=== PATIENT | male | born 1980 ===

== ENCOUNTER 2021-11-02 19:13 | Emergency (ER) | payer BC ==
--- OUTSIDE RECORDS SUMMARY | 2021-11-02 19:16 | XMS REPORT | Continuity of Care Document ---
:1980 Author Organization [facility] t Address [address] [place] [address] Care Team Providers Name Role Phone KALANI Primary Care Physician Unavailable Addie TO, T Attending Clinician Unavailable GREEN Attending Clinician Unavailable Jared PIANO PROFESSOR Attending Clinician Doctor Unassigned, Name Attending Clinician Unavailable Lab, Fam Pob I Attending Clinician Unavailable Payers Payer Name Policy Type Policy Number Effective Date Expiration Date S ource Problems Condition Condition Condition Status Onset Resolution Last Treating Co mments Source Name Details Category Date Date Treatment Clinician Date No known No known Disease Unive rs active active ity of problems problems [facility] Allergies, Adverse Reactions, Alerts Allergy Allergy Status Severity Reaction(s) Onset Inactive Treating Comm ents Source Name Type Date Date Clinician NO KNOWN Drug Active Univers ALLERGIE Class ity of S [facility] Social History Social Habit Start Date Stop Date Quantity Comments Source Exposure to Not sure [facility] SARS-CoV-2 (event) Medica l Branch Tobacco use and 2017-08-18 2017-08-18 Never used [facility] exposure 00:00:00 00:00:00 [facility] Sex Assigned At [birth year] [facility] 00:00:00 00:00:00 [facility] Smoking Status Start Date Stop Date Source Never smoker [facility] Medications Ordered Filled Start Stop Current Ordering Indication Dosage Frequency Signature Comments Components Source Medication Medication Date Date Medication? Clinician (SIG) Name Name methylPREDN 2018- Yes 84mg Take 21 Uni vers ISolone 5-23 tablets by ity of (MEDROL, 00:00: mouth [place] JUAQUIN,) 4 mg 00 SEE-INSTRU Med ical tablets CTIONS. Branch follow package directions methylPREDN 2018-0 Yes 84mg Take 21 Uni vers ISolone 5-23 tablets by ity of (MEDROL, 00:00: mouth [place] JUAQUIN,) 4 mg 00 SEE-INSTRU Med ical tablets CTIONS. Branch follow package directions methylPREDN 2018-0 Yes 84mg Take 21 Uni vers ISolone 5-23 tablets by ity of (MEDROL, 00:00: mouth [place] JUAQUIN,) 4 mg 00 SEE-INSTRU Med ical tablets CTIONS. Branch follow package directions methylPREDN 2018-0 Yes 84mg Take 21 Uni vers ISolone 5-23 tablets by ity of (MEDROL, 00:00: mouth [place] JUAQUIN,) 4 mg 00 SEE-INSTRU Med ical tablets CTIONS. Branch follow package directions methylPREDN 2018-0 Yes 84mg Take 21 Uni vers ISolone 2-16 tablets by ity of (MEDROL, 00:00: mouth [place] JUAQUIN,) 4 mg 00 SEE-INSTRU Med ical tablets CTIONS. Branch follow package directions methylPREDN 2018-0 Yes 84mg Take 21 Uni vers ISolone 2-16 tablets by ity of (MEDROL, 00:00: mouth [place] JUAQUIN,) 4 mg 00 SEE-INSTRU Med ical tablets CTIONS. Branch follow package directions methylPREDN 2018-0 Yes 84mg Take 21 Uni vers ISolone 2-16 tablets by ity of (MEDROL, 00:00: mouth [place] JUAQUIN,) 4 mg 00 SEE-INSTRU Med ical tablets CTIONS. Branch follow package directions methylPREDN 2018-0 Yes 84mg Take 21 Uni vers ISolone 2-16 tablets by ity of (MEDROL, 00:00: mouth [place] JUAQUIN,) 4 mg 00 SEE-INSTRU Med ical tablets CTIONS. Branch follow package directions Vital Signs Vital Name Observation Time Observation Value Comments Source Systolic blood 2021-07-06 15:15:00 125 mm[Hg] [facility] [place] [facility] Diastolic blood 2021-07-06 15:15:00 93 mm[Hg] [facility] Heart rate 2021-07-06 15:15:00 69 /min [facility] Body temperature 2021-07-06 15:15:00 36.5 Mira [facility] Respiratory rate 2021-07-06 15:15:00 16 /min [facility] Body height 2021-07-06 15:15:00 180.3 cm [facility] Body weight 2021-07-06 15:15:00 113.399 kg [facility] BMI 2021-07-06 15:15:00 34.87 kg/m2 [facility] Oxygen saturation in 2021-07-06 15:15:00 99 /min [facility] Arterial blood by [facility] Pulse oximetry [place] Procedures Procedure Date / Time Performed Performing Clinician Sour e ASSIGNMENT OF BENEFITS 2021-07-06 15:12:09 Doctor Unassigned, No [facility] Encounters Start End Encounter Admission Attending Care Care Encounter Source Date/Time Date/Time Type Type Clinicians Facility Department ID 2021-07-07 2021-07-07 Letter MIKE Real [id number] Univers 00:00:00 00:00:00 (Out) Fadia RIOS [id number] it y of [facility] [id number] Marcin as [id number] [address] 2021-07-06 2021-07-06 [facility] [id number] Univers 09:20:00 09:48:52 DEE ity [facility] 2021-07-06 2021-07-06 [facility] [id number] Univers 09:20:00 09:40:00 Care [facility] [id number] it y of [place] [id number] Marcin as SIGRID?BLEA [id number] [address] MEDICAL OFFICE BUILDING 2021-07-06 2021-07-06 Outpatient R [facility] [id number] Univers 09:20:00 09:20:00 [id number] ity [facility] 2021-07-06 2021-07-06 Orders Doctor MCKEON [id number] Univers 00:00:00 00:00:00 Only UnassignedGABRIEL [id number] ity of [facility] [id number] Marcin as [phone] [place] [address] Branch 2020-03-30 2020-03-30 Laboratory Lab, Adc Fam Pob I [facility] [id number] Univers 18:21:57 18:41:57 Only Jared [facility] [id number] ity of [place] [id number] Marcin as Professio [phone] [facility] [address] 2020-03-30 2020-03-30 Outpatient R JARED [facility] [id number] Univers 18:20:00 18:20:00 DEE [facility] Results This patient has no known results.
--- NOTE | 2021-11-02 20:11 | RAD REPORT ---
EXAM DESCRIPTION: CT - Facial Bones W/ Mpr - 11/02/2021 7:40 pm CLINICAL HISTORY: Baseball injury, blunt force trauma to the right cheek periorbital region COMPARISON: None. TECHNIQUE: Axial 2 millimeter thick images of the facial bones were obtained with sagittal and coron al reconstruction imaging. All CT scans are performed using dose optimization technique as appropriate and may include automated exposure control or mA/KV adjustment according to patient size. FINDINGS: Multiple fractures of the right maxillary sinus dickerson are present. Anterior wall fracture is present extends superiorly to the inferior orbital rim and continues posteriorly along the right o rbital floor. There is minimal depression of the orbital floor fracture. Fat extends through the frac ture defect. No extra ocular muscle entrapment. The globe, extraocular muscles optic nerve and orbita l fat show no acute finding. Air-fluid level present in the right maxillary sinus. Fractures are pres ent along the lateral sinus wall as well. Anterior wall fracture of the sinus continues to the maxill a zygomatic arch junction. No fracture of the medial orbital wall. No nasal bone fracture present. Minimal deviation of the nasa l septum to the right without fracture identifiable. Right-side medial and lateral pterygoids are intact. No mandible fractures seen. Condyles are normall y positioned. No skullbase fracture. Mastoid air cells are clear. Contusion and edema changes are present in the soft tissues overlying the maxilla. IMPRESSION: Comminuted fractures of the right maxillary sinus dickerson including right orbital floor fr acture. No significant displacement of the fracture fragments. There is minimal depression of the orbital floor fracture with a small amount of fat extending throug h the defect. No extraocular muscle entrapment. Contusion and edema change of the soft tissues overlying the right maxilla and right orbit. No orbita l content injury.
--- NOTE | 2021-11-02 20:13 | RAD REPORT ---
EXAM DESCRIPTION: CT - Head Brain Wo Cont - 11/02/2021 8:05 pm CLINICAL HISTORY: Head trauma, moderate-severe COMPARISON: Facial Bones W/ Mpr dated 11/02/2021 TECHNIQUE: Axial 5 mm thick images of the head were obtained without IV contrast. All CT scans are performed using dose optimization technique as appropriate and may include automated exposure control or mA/KV adjustment according to patient size. FINDINGS: No intracranial hemorrhage, mass, edema or shift of mid-line structures. No abnormal extra -axial fluid collections. Ventricles are normal. Mastoid air cells and middle ears are clear. No skullbase fracture. Orbits, facial bones and sinuses are separately reported. IMPRESSION: No hemorrhage, edema or acute intracranial finding. Facial bones, orbits and sinuses are separately reported.
[2021-11-02] MEDS ORDERED: HYDROCODONE/APAP 10/325 TAB ONE (21:59)
[2021-11-02] MEDS ORDERED: AMOXICILLIN TRIHYDR 250 MG CAP ONE (21:59)
--- NOTE | 2021-11-02 22:40 | ER ---
Nurse's Notes [facility] Name: Edmundo Bray II Age: 41 yrs Sex: Male : 1980 Arrival Date: 11/02/2021 Time: 19:15 Bed 29 Private MD: Diagnosis: Maxillary fracture, unspecified-comminutrd, right orbital floor, no muscle entrapment Presentation: 11/02 19:27 Chief complaint: Patient states: I was hit in the face with a softball today at [place] [address] practice - 1730. Pt denies LOC. Minimal pain at this time. Care prior to arrival: None. Mechanism of Injury:. Trauma event details: Injury occurred in the [facility]. 19:27 Acuity: NATALYA 4 ld1 19:27 Method Of Arrival: Ambulatory ld1 19:28 Coronavirus screen: At this time, the client does not indicate any symptoms associated ld1 with coronavirus-19. Ebola Screen: No symptoms or risks identified at this time. Initial Sepsis Screen: Does the patient meet any 2 criteria? No. Patient's initial sepsis screen is negative. Does the patient have a suspected source of infection? No. Patient's initial sepsis screen is negative. Risk Assessment: Do you want to hurt yourself or someone else? Patient reports no desire to harm self or others. Onset of symptoms was November 02, 2021. Triage Assessment: 19:28 General: Appears in no apparent distress. comfortable, Behavior is calm, cooperative, ld1 appropriate for age. Pain: Complains of pain in face Pain does not radiate. Pain currently is 3 out of 10 on a pain scale. Quality of pain is described as throbbing. EENT: No signs and/or symptoms were reported regarding the EENT system. Neuro: [place] Agitation-Sedation Scale (RASS): 0 - Alert and Calm Level of Consciousness is awake, alert, obeys commands, Oriented to person, place, time, situation. Cardiovascular: Capillary refill < 3 seconds Patient's skin is warm and dry. Respiratory: Airway is patent Respiratory effort is even, unlabored. Historical: - Allergies: 19:28 No Known Allergies; ld1 - Home Meds: 19:28 None [Active]; ld1 - PMHx: 19:28 None; ld1 - PSHx: 19:28 None; ld1 - Immunization history:: Adult Immunizations up to date, Client reports having NOT received the Covid vaccine. - Social history:: Smoking status: Patient denies any tobacco usage or history of. Patient uses alcohol. - Family history:: not pertinent. Screenin:00 Abuse screen: Denies threats or abuse. Nutritional screening: No deficits noted. vc1 Tuberculosis screening: No symptoms or risk factors identified. Fall Risk None identified. Assessment: 22:00 Reassessment: Patient and/or family updated on plan of care and expected duration. Pain vc1 level reassessed. Patient is alert, oriented x 3, equal unlabored respirations, skin warm/dry/pink. See triage assessment. Vital Signs: 19:28 BP 126 / 84; Pulse 69; Resp 18; Temp 98.6(TE); Pulse Ox 98% ; Weight 113.4 kg; Height 5 ld1 ft. 11 in. (180.34 cm); Pain 3/10; 22:00 BP 124 / 80; Pulse 66; Resp 18; Pulse Ox 98% on R/A; vc1 19:28 Body Mass Index 34.87 (113.40 kg, 180.34 cm) ld1 [place] Coma Score: 22:34 Eye Response: spontaneous(4). Verbal Response: oriented(5). Motor Response: obeys agustín commands(6). Total: 15. 22:37 Eye Response: spontaneous(4). Verbal Response: oriented(5). Motor Response: obeys agustín commands(6). Total: 15. ED Course: 19:15 Patient arrived in ED. kz 19:19 [facility] jm 19:19 Jorge Diana MD is Attending Physician. [facility] 19:28 Triage completed. ld1 19:28 Arm band placed on right wrist. ld1 19:41 CT Facial Bones W/O Con In Process Unspecified. EDMS 20:06 CT Head Brain wo Cont In Process Unspecified. EDMS 21:48 Jorge Diana MD is Attending Physician. agustín 22:11 Sapna Brooke, ZULEIKA is Primary Nurse. ld1 22:39 Anna Monroy MD is Referral Physician. agustín 22:50 No provider procedures requiring assistance completed. Patient did not have IV access vc1 during this emergency room visit. Administered Medications: 22:11 Drug: Augmentin (Amoxicillin-Clavulanate) 875 mg Route: PO; ld1 22:11 Drug: [place] (HYDROcodone-acetaminophen) 10 mg-325 mg 1 tabs Route: PO; ld1 Outcome: 22:40 Discharge ordered by . agustín 22:57 Patient left the ED. mw2 11/03 04:33 Discharged to home ambulatory. vc1 Condition: stable Discharge instructions given to patient, Instructed on discharge instructions, follow up and referral plans. Demonstrated understanding of instructions, follow-up care. Signatures: Dispatcher [employer] EDJorge Fisher MD MD cha Mickail, Joel, PA PA jmm [place], MyKena mw2 Sapna Brooke RN RN ld1 Janessa Conklin RN RN vc1 Ana Morin
--- NOTE | 2021-11-02 22:40 | EDPHYS ---
Physician Documentation [facility] Name: Edmundo Bray II Age: 41 yrs Sex: Male : 1980 Arrival Date: 11/02/2021 Time: 19:15 Bed 29 Private MD: ED Physician Jorge Diana HPI: 11/02 22:34 This 41 yrs old Male presents to ER via Ambulatory with complaints of Facial agustín Injury - Hit with baseball. 22:34 The patient or guardian reports deformity, pain, swelling, tenderness. The complaints agustín affect the right eye and right cheek. Context of injury: The problem was sustained at a neighbor's home. Onset: The symptoms/episode began/occurred just prior to arrival. Associated signs and symptoms: Loss of consciousness: This patient did not experience any loss of consciousness. Severity of symptoms: At their worst the symptoms were mild, in the emergency department the symptoms are unchanged. The patient has not experienced similar symptoms in the past. Historical: - Allergies: 19:28 No Known Allergies; ld1 - Home Meds: 19:28 None [Active]; ld1 - PMHx: 19:28 None; ld1 - PSHx: 19:28 None; ld1 - Immunization history:: Adult Immunizations up to date, Client reports having NOT received the Covid vaccine. - Social history:: Smoking status: Patient denies any tobacco usage or history of. Patient uses alcohol. - Family history:: not pertinent. ROS: 22:34 Constitutional: Negative for fever, chills, and weight loss, Neck: Negative for injury, agustín pain, and swelling, Cardiovascular: Negative for chest pain, palpitations, and edema, Respiratory: Negative for shortness of breath, cough, wheezing, and pleuritic chest pain, Abdomen/GI: Negative for abdominal pain, nausea, vomiting, diarrhea, and constipation, Back: Negative for injury and pain, : Negative for injury, bleeding, discharge, and swelling, MS/Extremity: Negative for injury and deformity, Skin: Negative for injury, rash, and discoloration, Neuro: Negative for headache, weakness, numbness, tingling, and seizure. 22:34 Eyes: Positive for pain, swelling. 22:34 ENT: Positive for injury or acute deformity, of the right eye and right cheek. Exam: 22:34 Constitutional: This is a well developed, well nourished patient who is awake, alert, agustín and in no acute distress. Eyes: Pupils equal round and reactive to light, extra-ocular motions intact. Lids and lashes normal. Conjunctiva and sclera are non-icteric and not injected. Cornea within normal limits. Periorbital areas with no swelling, redness, or edema. ENT: Nares patent. No nasal discharge, no septal abnormalities noted. Tympanic membranes are normal and external auditory canals are clear. Oropharynx with no redness, swelling, or masses, exudates, or evidence of obstruction, uvula midline. Mucous membranes moist. Neck: Trachea midline, no thyromegaly or masses palpated, and no cervical lymphadenopathy. Supple, full range of motion without nuchal rigidity, or vertebral point tenderness. No Meningismus. Chest/axilla: Normal chest wall appearance and motion. Nontender with no deformity. No lesions are appreciated. Cardiovascular: Regular rate and rhythm with a normal S1 and S2. No gallops, murmurs, or rubs. Normal PMI, no JVD. No pulse deficits. Respiratory: Lungs have equal breath sounds bilaterally, clear to auscultation and percussion. No rales, rhonchi or wheezes noted. No increased work of breathing, no retractions or nasal flaring. Abdomen/GI: Soft, non-tender, with normal bowel sounds. No distension or tympany. No guarding or rebound. No evidence of tenderness throughout. Back: No spinal tenderness. No costovertebral tenderness. Full range of motion. Skin: Warm, dry with normal turgor. Normal color with no rashes, no lesions, and no evidence of cellulitis. MS/ Extremity: Pulses equal, no cyanosis. Neurovascular intact. Full, normal range of motion. Neuro: Awake and alert, GCS 15, oriented to person, place, time, and situation. Cranial nerves II-XII grossly intact. Motor strength 5/5 in all extremities. Sensory grossly intact. Cerebellar exam normal. Normal gait. Psych: Awake, alert, with orientation to person, place and time. Behavior, mood, and affect are within normal limits. 22:34 Head/face: Noted is deformity, hematoma, swelling, that is moderate, of the right eye and right cheek, tenderness. Vital Signs: 19:28 BP 126 / 84; Pulse 69; Resp 18; Temp 98.6(TE); Pulse Ox 98% ; Weight 113.4 kg; Height 5 ld1 ft. 11 in. (180.34 cm); Pain 3/10; 22:00 BP 124 / 80; Pulse 66; Resp 18; Pulse Ox 98% on R/A; vc1 19:28 Body Mass Index 34.87 (113.40 kg, 180.34 cm) ld1 [place] Coma Score: 22:34 Eye Response: spontaneous(4). Verbal Response: oriented(5). Motor Response: obeys agustín commands(6). Total: 15. 22:37 Eye Response: spontaneous(4). Verbal Response: oriented(5). Motor Response: obeys agustín commands(6). Total: 15. MDM: 21:50 Patient medically screened. agustín 22:37 Differential diagnosis: Contusion of Hematoma on Intracranial bleed- Concussion without agustín LOC. Data reviewed: vital signs, nurses notes, radiologic studies, CT scan. Data interpreted: telemetry monitor: not applicable for this patient encounter. rate is 69 beats/min, rhythm is regular, Pulse oximetry: on room air is 98 %. 11/02 19:32 Order name: CT Facial Bones W/O Con; Complete Time: 20:14 agustín 11/02 19:53 Order name: CT Head Brain wo Cont; Complete Time: 20:14 [facility] 11/02 19:32 Order name: Ice pack; Complete Time: 21:47 agustín Administered Medications: 22:11 Drug: Augmentin (Amoxicillin-Clavulanate) 875 mg Route: PO; ld1 22:11 Drug: [place] (HYDROcodone-acetaminophen) 10 mg-325 mg 1 tabs Route: PO; ld1 Disposition Summary: 11/02/21 22:40 Discharge Ordered Location: Home agustín Problem: new agustín Symptoms: have improved agustín Condition: Stable agustín Diagnosis - Maxillary fracture, unspecified - comminutrd, right orbital floor, no muscle agustín entrapment Followup: agustín - With: Private Physician - When: 2 - 3 days - Reason: Recheck today's complaints, Continuance of care, Re-evaluation by your physician Followup: agustín - With: Anna Monroy MD - When: 2 - 3 days - Reason: Recheck today's complaints, Re-evaluation by your physician Discharge Instructions: - Discharge Summary Sheet agustín - Orbital Floor Fracture agustín - Sinusitis, Adult [facility] Forms: - Medication Reconciliation Form agustín - Thank You Letter agustín - Antibiotic Education agustín - Prescription Opioid Use [facility] Prescriptions: - Augmentin 875-125 mg Oral Tablet - take 1 tablet by ORAL route every 12 hours for 10 days; 20 tablet; Refills: 0, [facility] Product Selection Permitted - Tylenol-Codeine #3 300 mg-30 mg Oral - take 2 tablet by ORAL route every 4-6 hours; 24 tablet; Refills: 0, Product [facility] Selection Permitted Signatures: Dispatcher [employer] EDJorge Fisher MD MD cha Mickail, Joel, PA PA jmm Dibbern, Lauren, RN RN ld1
[2021-11-03 00:48] VITALS: BP 126/84; TEMP 98.6; O2SAT 98
== END 2021-11-02 22:57 | disposition home or self-care (01) ==
LOC: ER 19:13
DX: S02.40CA Maxillary fracture, right side, initial encounter for closed fracture (principal); S02.31XA Fracture of orbital floor, right side, initial encounter for closed fracture; W21.03XA Struck by baseball, initial encounter; Y92.89 Other specified places as the place of occurrence of the external cause
CPT/HCPCS: 70450; 70486; 76377; 99283